=== PATIENT | female | born 1935 | race Caucasian/White ===

== ENCOUNTER 2019-09-11 00:46 | Emergency (ER) | payer MEDICARE, BC ==
[2019-09-11] MEDS ORDERED: Morphine 4 MG/ML Syringe IM ONE (01:00)
[2019-09-11] MEDS ORDERED: Ketorolac 30 MG/ML SDV IM ONE (01:04)
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
--- NOTE | 2019-09-11 02:53 | CRLCT ---
INDICATION: Trauma. Right paraspinal pain. COMPARISON: None available TECHNIQUE: CT examination of the lumbar spine is performed with spiral technique without contrast. 3 mm thick axial, sagittal and coronal reconstructions were made. Please note that all CT scans at this facility use dose modulation, iterative reconstruction, and/or weight-based dosing when appropriate to reduce radiation dose to as low as reasonably achievable. FINDINGS: : There is mild buckling of the cortex of the anterior-superior L1 vertebral body along with very subtle fracture lines, findings of an acute compression fracture of the anterior-superior L1 vertebral body. There is very minimal anterior wedging of the vertebral body and mild depression of the superior endplate. No definite paraspinal soft tissue swelling is seen to confirm an acute fracture. No sign of any retropulsion of the posterior superior margin of the L1 vertebral body into the spinal canal, with no sign of spinal stenosis at this level. The rest of the lumbar vertebral bodies are normal in height with no sign of any additional fracture lines or endplate depressions. The intervertebral discs are normal in height. There is moderate right lateral L4 disc bulging into the neural foramen without contact with the exiting nerve root. There is mild bilateral lateral disc bulging into the neural foramina throughout the rest of the lumbar spine, without contact with the exiting nerve roots. 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 A few small nonobstructive calculi are seen in the interpolar region of the left kidney. No definite calculi are seen in the right kidney. The rest of the visualized abdominal viscera is unremarkable. IMPRESSION: Acute, mild superior L1 endplate and compression fracture without any retropulsion of the vertebral body into the spinal canal. No additional acute or chronic osseous injury. Mild spinal stenosis from L2-3 through L4-5 as described above. Please note that all CT scans at this facility use dose modulation, iterative reconstruction, and/or weight-based dosing when appropriate to reduce radiation dose to as low as reasonably achievable. Dictated by Michael Parnell MD @ Sep 11 2019 2:44AM Signed by Dr. Michael Parnell @ Sep 11 2019 2:51AM
--- NOTE | 2019-09-11 09:08 | CR ---
Thoracolumbar 2V CLINICAL HISTORY: Right paraspinal spasms FINDINGS: There is a superior endplate compression deformity at L1. This is of uncertain chronology. There is a grade 1 anterolisthesis of L4 on L5. There are some mild degenerative disc changes with spondylosis. There is moderate osteoarthropathy in the lower lumbar facets. There is also moderate spondylosis in the mid thoracic spine IMPRESSION: Mild superior endplate compression deformity at L1 of uncertain chronology. 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
== END 2019-09-11 05:10 | disposition home or self-care (01) ==
LOC: JP.ED 00:46
DX: S22.41XA Multiple fractures of ribs, right side, initial encounter for closed fracture (principal); Z88.1 Allergy status to other antibiotic agents; Z79.899 Other long term (current) drug therapy; V89.0XXA Person injured in unspecified motor-vehicle accident, nontraffic, initial encounter
CPT/HCPCS: 72080; 72128; 72131; 96372; 99284; J1885

== ENCOUNTER 2024-09-02 23:07 | Emergency (ER) | payer MEDICARE, BC ==
[2024-09-03] MEDS ORDERED: Naloxone 0.4 MG/ML SDV IVPUSH PRN (00:01)
[2024-09-03 00:29] LABS: BASOPHILS ABSOLUTE AUTO 0.07 K/uL (0.00-0.10); BASOPHILS PERCENT AUTO 0.6 % (0.1-1.3); EOSINOPHILS ABSOLUTE AUTO 0.59 K/uL (0.00-0.40); EOSINOPHILS PERCENT AUTO 4.9 % (0.0-5.4); IMMATURE GRAN ABSOLUTE AUTO 0.15 K/uL (0.00-0.23); IMMATURE GRAN PERCENT AUTO 1.3 % (0.0-0.7); LYMPHOCYTES ABSOLUTE AUTO 1.63 K/uL (0.8-3.3); LYMPHOCYTES PERCENT AUTO 13.6 % (11.4-47.7); MONOCYTES ABSOLUTE AUTO 1.15 K/uL (0.20-0.90); MONOCYTES PERCENT AUTO 9.6 % (3.3-12.6); NEUTROPHILS ABSOLUTE AUTO 8.39 K/uL (1.0-7.6); NEUTROPHILS PERCENT AUTO 70.0 % (40.0-78.1); PLATELET COUNT,PLT 235 K/uL (130-375); RED BLOOD CELL COUNT 4.22 M/uL (3.77-5.24); WHITE BLOOD CELL COUNT,WBC 12.0 K/uL (3.2-11.0)
[2024-09-03] MEDS: Iopamidol 612 MG/ML 100 ML Bottle IV SCH (00:43)
[2024-09-03] MEDS: Sodium Chloride 0.9% 10 ML Syringe FLUSH PRN (00:44)
[2024-09-03 00:46] LABS: A/G RATIO 0.9 (1.2-2.2); ALANINE AMINOTRANSFERASE,ALT 36 U/L (12-78); ASPARTATE AMNIOTRANSFERASE,AST 25 U/L (15-37); BILIRUBIN TOTAL 0.6 mg/dL (0.2-1.0); BLOOD UREA NITROGEN,BUN 15 mg/dL (7-18); CARBON DIOXIDE,CO2 30 mmol/L (21-32); CHLORIDE,CL 101 mmol/L (100-108); CREATININE 0.7 mg/dL (0.6-1.0); EST CRCL DRUG DOSING (CG) 49.82 mL/min; ESTIMATED GFR 84 mL/min (>60); GLUCOSE RANDOM 132 mg/dL (74-106); POTASSIUM,K 3.5 mmol/L (3.6-5.2); PROTEIN TOTAL,TP 7.9 g/dL (6.4-8.2); SODIUM,NA 139 mmol/L (140-148)
[2024-09-03 00:52] LABS: LACTIC ACID 1.7 mmol/L (0.4-2.0)
[2024-09-03 02:04] LABS: APPEARANCE,URINE CLEAR (CLEAR); GLUCOSE,URINE NEGATIVE (NEGATIVE); OCCULT BLOOD,URINE NEGATIVE (NEGATIVE)
[2024-09-03 02:14] LABS: EPITHELIAL CELLS,URINE FEW
== END 2024-09-03 03:06 | disposition home or self-care (01) ==
LOC: JP.ED 23:07
DX: R10.31 Right lower quadrant pain (principal); I10 Essential (primary) hypertension; Z88.1 Allergy status to other antibiotic agents; Z79.890 Hormone replacement therapy; Z79.899 Other long term (current) drug therapy; Z90.49 Acquired absence of other specified parts of digestive tract; Z90.710 Acquired absence of both cervix and uterus
CPT/HCPCS: 36415; 74177; 80053; 81001; 83605; 85025; 86140; 96374; 99285; Q9967; 99284; J1171